=== PATIENT | female | born 1965 | race Caucasian/White ===

== ENCOUNTER 2018-06-18 08:04 | Inpatient (IN) | payer MEDICAID ==
[~2018-06-18] VITALS: Ht 160 cm; Wt 99.7 kg
[2018-06-18 09:58] VITALS: BP 145/82
[2018-06-18] MEDS ORDERED: SERT100T5 PO (10:56)
[2018-06-18] MEDS ORDERED: FERR140T3 PO (10:56)
[2018-06-18] MEDS ORDERED: DIVA250T PO (10:57)
[2018-06-18] MEDS ORDERED: GABAPENTIN 300 MG CAPSULE PO PRN (11:00)
[2018-06-18] MEDS ORDERED: ACETAMINOPHEN 325 MG TABLET PO PRN (11:00)
[2018-06-18] MEDS ORDERED: ONDANSETRON ODT 4 MG PO PRN (11:00)
[2018-06-18] MEDS ORDERED: LIDODERM 5% PATCH TD PRN (11:00)
[2018-06-18] MEDS: methylPREDNISolone SOD SUCC 125 MG/2 ML IVPush SCH ×2 (11:43→21:06)
[2018-06-18] MEDS: DOXYCYCLINE 100MG TABLET PO SCH ×2 (11:43→21:07)
[2018-06-18] MEDS: ENOXAPARIN 40 MG/0.4 ML SQ SCH (11:43)
[2018-06-18 12:46] VITALS: BP 120/77
[2018-06-18] MEDS ORDERED: ALBUTEROL SULFATE 2.5 MG/3 ML ONE (12:48)
[2018-06-18] MEDS: ALBUTEROL/IPRATROPIUM 2.5MG/0.5MG, 3 ML NPPB SCH ×4 (12:50→23:08)
[2018-06-18] MEDS ORDERED: ALBUTEROL/IPRATROPIUM 2.5MG/0.5MG, 3 ML NPPB PRN (13:30)
[2018-06-18 19:30] VITALS: BP 119/78
[2018-06-18] MEDS: DIVALPROEX 500 MG TAB.ER.24H PO SCH (21:07)
[2018-06-18] MEDS: LORazepam 1MG TABLET PO PRN (21:08)
[2018-06-18] MEDS: FERROUS SULFATE 220 MG/5 ML ORAL SOL PO SCH (21:38)
[2018-06-19 01:03] VITALS: BP 131/75
[2018-06-19] MEDS: ALBUTEROL/IPRATROPIUM 2.5MG/0.5MG, 3 ML NPPB SCH ×5 (03:00→23:51)
[2018-06-19 07:05] VITALS: BP 137/78
[2018-06-19 07:23] VITALS: BP 137/78
[2018-06-19 08:07] LABS: ANION GAP 7 mmol/L (5-15); CHLORIDE 109 mmol/L (98-107)
[2018-06-19 08:10] LABS: ALANINE AMINOTRANSFERASE 16 U/L (12-78); ALKALINE PHOSPHATASE 45 U/L (45-117); BASOPHILS # (AUTO) 0.03 x10^3/uL (0-0.1); BASOPHILS % (AUTO) 0 % (0-1); BILIRUBIN,TOTAL 0.2 mg/dL (0.2-1.0); CREATININE 0.53 mg/dL (0.55-1.02); EOSINOPHILS # (AUTO) 0.02 x10^3/uL (0-0.4); EOSINOPHILS % (AUTO) 0 % (1-7); LYMPHOCYTES # (AUTO) 1.52 x10^3/uL (1-3.4); LYMPHOCYTES % (AUTO) 16 % (22-44); MD NO; MEAN CORPUSCULAR HEMOGLOBIN 28.3 pg (27.0-34.8); MEAN CORPUSCULAR HGB CONC 32.7 g/dL (32.4-35.8); MEAN CORPUSCULAR VOLUME 86.4 fL (80-100); MEAN PLATELET VOLUME 10.1 fL (7.4-10.4); MONOCYTES # (AUTO) 0.65 x10^3/uL (0.2-0.8); MONOCYTES % (AUTO) 7 % (2-9); NEUTROPHILS # (AUTO) 7.44 x10^3/uL (1.8-6.8); NEUTROPHILS % (AUTO) 77 % (42-75); PLATELET COUNT 222 x10^3/uL (130-400); RED BLOOD COUNT 4.28 x10^6/uL (3.82-5.3); RED CELL DISTRIBUTION WIDTH 19.6 % (9.6-15.2); TOTAL PROTEIN 6.5 g/dL (6.4-8.2)
[2018-06-19] MEDS: methylPREDNISolone SOD SUCC 125 MG/2 ML IVPush SCH ×3 (08:21→21:39)
[2018-06-19] MEDS: DOXYCYCLINE 100MG TABLET PO SCH ×2 (08:21→21:39)
[2018-06-19] MEDS: SERTRALINE 100MG TABLET PO SCH (08:21)
[2018-06-19] MEDS: FERROUS SULFATE 220 MG/5 ML ORAL SOL PO SCH ×2 (08:32→21:38)
[2018-06-19] MEDS: ENOXAPARIN 40 MG/0.4 ML SQ SCH (12:18)
[2018-06-19 12:41] VITALS: BP 152/92
[2018-06-19] MEDS: LORazepam 1MG TABLET PO PRN (14:35)
[2018-06-19 19:15] VITALS: BP 135/82
[2018-06-19] MEDS: DIVALPROEX 500 MG TAB.ER.24H PO SCH (21:39)
[2018-06-20 00:10] VITALS: BP 126/84
[2018-06-20] MEDS: METHOCARBAMOL 500 MG TABLET PO PRN ×2 (01:05→17:05)
[2018-06-20] MEDS: LORazepam 1MG TABLET PO PRN ×3 (01:05→17:05)
[2018-06-20] MEDS: ALBUTEROL/IPRATROPIUM 2.5MG/0.5MG, 3 ML NPPB SCH ×6 (03:21→22:50)
[2018-06-20] MEDS: methylPREDNISolone SOD SUCC 125 MG/2 ML IVPush SCH (05:08)
[2018-06-20 06:55] VITALS: BP 134/87
[2018-06-20] MEDS: SERTRALINE 100MG TABLET PO SCH (10:10)
[2018-06-20] MEDS: DOXYCYCLINE 100MG TABLET PO SCH ×2 (10:10→21:54)
[2018-06-20] MEDS: FERROUS SULFATE 220 MG/5 ML ORAL SOL PO SCH ×2 (10:11→21:53)
[2018-06-20 13:03] VITALS: BP 133/80
[2018-06-20] MEDS: ENOXAPARIN 40 MG/0.4 ML SQ SCH (17:05)
[2018-06-20 19:27] VITALS: BP 101/62
[2018-06-20] MEDS: DIVALPROEX 500 MG TAB.ER.24H PO SCH (21:54)
[2018-06-21] MEDS: METHOCARBAMOL 500 MG TABLET PO PRN ×2 (01:33→17:13)
[2018-06-21 02:00] VITALS: BP 133/87
[2018-06-21] MEDS: ALBUTEROL/IPRATROPIUM 2.5MG/0.5MG, 3 ML NPPB SCH ×6 (02:32→23:00)
[2018-06-21] MEDS: FERROUS SULFATE 220 MG/5 ML ORAL SOL PO SCH ×2 (08:28→20:07)
[2018-06-21 08:30] VITALS: BP 129/82
[2018-06-21] MEDS: SERTRALINE 100MG TABLET PO SCH (08:31)
[2018-06-21] MEDS: DOXYCYCLINE 100MG TABLET PO SCH ×2 (08:31→20:07)
[2018-06-21] MEDS: LORazepam 1MG TABLET PO PRN ×2 (10:01→20:07)
[2018-06-21 14:00] VITALS: BP 105/67
[2018-06-21] MEDS: ENOXAPARIN 40 MG/0.4 ML SQ SCH (17:13)
[2018-06-21 19:04] VITALS: BP 124/78
[2018-06-21] MEDS: DIVALPROEX 500 MG TAB.ER.24H PO SCH (20:07)
[2018-06-21] MEDS: BENZONATATE 100 MG CAPSULE PO PRN (20:34)
[2018-06-22 01:29] VITALS: BP 131/82
[2018-06-22] MEDS: ALBUTEROL/IPRATROPIUM 2.5MG/0.5MG, 3 ML NPPB SCH ×6 (02:29→22:50)
[2018-06-22] MEDS: METHOCARBAMOL 500 MG TABLET PO PRN ×3 (03:02→19:44)
[2018-06-22] MEDS: BENZONATATE 100 MG CAPSULE PO PRN ×2 (05:15→13:55)
[2018-06-22 05:31] LABS: BASOPHILS # (AUTO) 0.03 x10^3/uL (0-0.1); BASOPHILS % (AUTO) 0 % (0-1); EOSINOPHILS # (AUTO) 0.02 x10^3/uL (0-0.4); EOSINOPHILS % (AUTO) 0 % (1-7); LYMPHOCYTES % (AUTO) 20 % (22-44); MD NO; MEAN CORPUSCULAR HEMOGLOBIN 28.6 pg (27.0-34.8); MEAN CORPUSCULAR HGB CONC 32.8 g/dL (32.4-35.8); MEAN CORPUSCULAR VOLUME 87.3 fL (80-100); MONOCYTES # (AUTO) 1.05 x10^3/uL (0.2-0.8); MONOCYTES % (AUTO) 9 % (2-9); NEUTROPHILS # (AUTO) 8.37 x10^3/uL (1.8-6.8); NEUTROPHILS % (AUTO) 70 % (42-75); PLATELET COUNT 251 x10^3/uL (130-400); RED BLOOD COUNT 4.56 x10^6/uL (3.82-5.3)
[2018-06-22 05:44] LABS: ANION GAP 7 mmol/L (5-15); CALCIUM 9.1 mg/dL (8.5-10.1); CHLORIDE 101 mmol/L (98-107); CREATININE 0.64 mg/dL (0.55-1.02)
[2018-06-22 07:28] VITALS: BP 134/84
[2018-06-22] MEDS: SERTRALINE 100MG TABLET PO SCH (08:07)
[2018-06-22] MEDS: DOXYCYCLINE 100MG TABLET PO SCH ×2 (08:07→19:44)
[2018-06-22] MEDS: FERROUS SULFATE 220 MG/5 ML ORAL SOL PO SCH ×2 (08:08→19:43)
[2018-06-22] MEDS: GUAIFENESIN 200 MG TABLET PO SCH ×2 (11:08→16:34)
[2018-06-22 14:30] VITALS: BP 102/66
[2018-06-22] MEDS: ENOXAPARIN 40 MG/0.4 ML SQ SCH (16:34)
[2018-06-22] MEDS: LORazepam 1MG TABLET PO PRN (17:33)
[2018-06-22] MEDS: DIVALPROEX 500 MG TAB.ER.24H PO SCH (19:44)
[2018-06-22 19:47] VITALS: BP 116/67
[2018-06-23] MEDS: GUAIFENESIN 200 MG TABLET PO SCH ×5 (00:58→19:38)
[2018-06-23] MEDS: LORazepam 1MG TABLET PO PRN ×3 (00:58→21:23)
[2018-06-23 01:13] VITALS: BP 124/73
[2018-06-23 05:24] LABS: BASOPHILS # (AUTO) 0.03 x10^3/uL (0-0.1); BASOPHILS % (AUTO) 0 % (0-1); EOSINOPHILS % (AUTO) 0 % (1-7); LYMPHOCYTES # (AUTO) 1.83 x10^3/uL (1-3.4); LYMPHOCYTES % (AUTO) 17 % (22-44); MD NO; MEAN CORPUSCULAR HEMOGLOBIN 28.5 pg (27.0-34.8); MEAN CORPUSCULAR HGB CONC 32.6 g/dL (32.4-35.8); MEAN CORPUSCULAR VOLUME 87.3 fL (80-100); MEAN PLATELET VOLUME 10.1 fL (7.4-10.4); MONOCYTES # (AUTO) 0.88 x10^3/uL (0.2-0.8); MONOCYTES % (AUTO) 8 % (2-9); NEUTROPHILS # (AUTO) 7.99 x10^3/uL (1.8-6.8); NEUTROPHILS % (AUTO) 75 % (42-75); PLATELET COUNT 237 x10^3/uL (130-400); RED BLOOD COUNT 4.37 x10^6/uL (3.82-5.3)
[2018-06-23 05:26] LABS: ANION GAP 6 mmol/L (5-15); CALCIUM 9.3 mg/dL (8.5-10.1); CHLORIDE 102 mmol/L (98-107)
[2018-06-23 05:31] LABS: CREATININE 0.63 mg/dL (0.55-1.02)
[2018-06-23] MEDS: METHOCARBAMOL 500 MG TABLET PO PRN ×2 (05:47→14:19)
[2018-06-23] MEDS: ALBUTEROL/IPRATROPIUM 2.5MG/0.5MG, 3 ML NPPB SCH ×5 (06:37→22:36)
[2018-06-23 07:21] VITALS: BP 124/80
[2018-06-23] MEDS: FERROUS SULFATE 220 MG/5 ML ORAL SOL PO SCH ×2 (07:46→19:37)
[2018-06-23] MEDS: SERTRALINE 100MG TABLET PO SCH (07:47)
[2018-06-23] MEDS: DOXYCYCLINE 100MG TABLET PO SCH ×2 (07:47→19:38)
[2018-06-23] MEDS: BENZONATATE 100 MG CAPSULE PO PRN ×2 (07:54→14:18)
[2018-06-23 14:00] VITALS: BP 113/77
[2018-06-23] MEDS: ENOXAPARIN 40 MG/0.4 ML SQ SCH (16:22)
[2018-06-23 18:32] VITALS: BP 117/69
[2018-06-23] MEDS: DIVALPROEX 500 MG TAB.ER.24H PO SCH (19:38)
[2018-06-24 00:52] VITALS: BP 118/63
[2018-06-24] MEDS: ALBUTEROL/IPRATROPIUM 2.5MG/0.5MG, 3 ML NPPB SCH ×6 (03:00→22:45)
[2018-06-24] MEDS: LORazepam 1MG TABLET PO PRN (04:31)
[2018-06-24 04:44] LABS: MEAN CORPUSCULAR HEMOGLOBIN 27.9 pg (27.0-34.8); MEAN CORPUSCULAR HGB CONC 32.3 g/dL (32.4-35.8); MEAN CORPUSCULAR VOLUME 86.5 fL (80-100); MEAN PLATELET VOLUME 9.8 fL (7.4-10.4); PLATELET COUNT 242 x10^3/uL (130-400); RED BLOOD COUNT 4.41 x10^6/uL (3.82-5.3); RED CELL DISTRIBUTION WIDTH 19.6 % (9.6-15.2)
[2018-06-24 04:50] LABS: ANION GAP 5 mmol/L (5-15); CALCIUM 8.8 mg/dL (8.5-10.1); CHLORIDE 103 mmol/L (98-107)
[2018-06-24 05:02] LABS: BASOPHILS # (AUTO) 0.15 x10^3/uL (0-0.1); BASOPHILS % (AUTO) 1 % (0-1); EOSINOPHILS # (AUTO) 0.01 x10^3/uL (0-0.4); EOSINOPHILS % (AUTO) 0 % (1-7); LYMPHOCYTES # (AUTO) 2.18 x10^3/uL (1-3.4); LYMPHOCYTES % (AUTO) 17 % (22-44); MD SCAN; MONOCYTES # (AUTO) 0.95 x10^3/uL (0.2-0.8); MONOCYTES % (AUTO) 7 % (2-9); NEUTROPHILS # (AUTO) 9.59 x10^3/uL (1.8-6.8); NEUTROPHILS % (AUTO) 75 % (42-75)
[2018-06-24] MEDS: GUAIFENESIN 200 MG TABLET PO SCH ×4 (06:02→19:53)
[2018-06-24 07:59] VITALS: BP 121/74
[2018-06-24] MEDS: METHOCARBAMOL 500 MG TABLET PO PRN ×2 (08:25→16:56)
[2018-06-24] MEDS: DOXYCYCLINE 100MG TABLET PO SCH ×2 (08:26→19:52)
[2018-06-24] MEDS: SERTRALINE 100MG TABLET PO SCH (08:26)
[2018-06-24] MEDS: FERROUS SULFATE 220 MG/5 ML ORAL SOL PO SCH ×2 (08:26→19:52)
[2018-06-24] MEDS ORDERED: MAGNESIUM SULFATE PMX 2GM/50ML 50 ML IV ONE (10:30)
[2018-06-24 13:35] VITALS: BP 122/76
[2018-06-24] MEDS: ENOXAPARIN 40 MG/0.4 ML SQ SCH (16:54)
[2018-06-24 19:44] VITALS: BP 134/85
[2018-06-24] MEDS: DIVALPROEX 500 MG TAB.ER.24H PO SCH (19:53)
[2018-06-25 01:47] VITALS: BP 108/71
[2018-06-25] MEDS: ALBUTEROL/IPRATROPIUM 2.5MG/0.5MG, 3 ML NPPB SCH ×3 (03:07→10:37)
[2018-06-25] MEDS: METHOCARBAMOL 500 MG TABLET PO PRN (03:59)
[2018-06-25 05:25] LABS: BASOPHILS # (AUTO) 0.04 x10^3/uL (0-0.1); BASOPHILS % (AUTO) 0 % (0-1); EOSINOPHILS # (AUTO) 0.01 x10^3/uL (0-0.4); EOSINOPHILS % (AUTO) 0 % (1-7); LYMPHOCYTES # (AUTO) 2.02 x10^3/uL (1-3.4); LYMPHOCYTES % (AUTO) 15 % (22-44); MD NO; MEAN CORPUSCULAR HEMOGLOBIN 28.8 pg (27.0-34.8); MEAN CORPUSCULAR HGB CONC 32.9 g/dL (32.4-35.8); MEAN CORPUSCULAR VOLUME 87.7 fL (80-100); MONOCYTES # (AUTO) 0.87 x10^3/uL (0.2-0.8); MONOCYTES % (AUTO) 7 % (2-9); NEUTROPHILS # (AUTO) 10.44 x10^3/uL (1.8-6.8); NEUTROPHILS % (AUTO) 78 % (42-75); PLATELET COUNT 228 x10^3/uL (130-400); RED CELL DISTRIBUTION WIDTH 19.6 % (9.6-15.2)
[2018-06-25 05:33] LABS: ANION GAP 8 mmol/L (5-15); CALCIUM 8.4 mg/dL (8.5-10.1); CHLORIDE 102 mmol/L (98-107)
[2018-06-25 05:34] LABS: CREATININE 0.64 mg/dL (0.55-1.02)
[2018-06-25] MEDS: GUAIFENESIN 200 MG TABLET PO SCH ×2 (05:39→10:33)
[2018-06-25 07:27] VITALS: BP 115/74
[2018-06-25] MEDS: SERTRALINE 100MG TABLET PO SCH (08:14)
[2018-06-25] MEDS: DOXYCYCLINE 100MG TABLET PO SCH (08:14)
[2018-06-25] MEDS ORDERED: PRED10TA PO (09:56)
[2018-06-25] MEDS ORDERED: IPRA3AMP30 NPPB (09:56)
[2018-06-25] MEDS ORDERED: BENZ-17 PO (09:56)
[2018-06-25] MEDS: FERROUS SULFATE 220 MG/5 ML ORAL SOL PO SCH (10:00)
[2018-06-25] MEDS ORDERED: FERROUS SULFATE 325 MG TABLET PO SCH (21:00)
== END 2018-06-25 12:15 | disposition home or self-care (01) | DRG 189 ==
LOC: 4EST 09:31 → 3NE 06-19 23:12 → DCLOUNGE 06-25 12:04
PROVIDERS: ADMIT Internal Medicine; ATTEND Internal Medicine
DX: J96.21 Acute and chronic respiratory failure with hypoxia (principal); J45.901 Unspecified asthma with (acute) exacerbation; K50.90 Crohn's disease, unspecified, without complications; F41.9 Anxiety disorder, unspecified; F31.9 Bipolar disorder, unspecified; G43.909 Migraine, unspecified, not intractable, without status migrainosus; J84.10 Pulmonary fibrosis, unspecified; M19.90 Unspecified osteoarthritis, unspecified site; Z79.52 Long term (current) use of systemic steroids; Z82.49 Family history of ischemic heart disease and other diseases of the circulatory system; Z82.5 Family history of asthma and other chronic lower respiratory diseases; Z83.3 Family history of diabetes mellitus; Z87.891 Personal history of nicotine dependence; Z99.81 Dependence on supplemental oxygen; R73.9 Hyperglycemia, unspecified; Z98.51 Tubal ligation status; J44.9 Chronic obstructive pulmonary disease, unspecified; Z88.6 Allergy status to analgesic agent; Z88.3 Allergy status to other anti-infective agents; Z91.013 Allergy to seafood; Z88.8 Allergy status to other drugs, medicaments and biological substances; Z91.048 Other nonmedicinal substance allergy status
CPT/HCPCS: 36415; J7620; 71045; 80048; 80053; 83735; 84100; 85025; 94640; G0378; J1650; J2930; J3475; J7512